=== PATIENT | female | born 1975 | race Caucasian/White ===

== ENCOUNTER 2019-11-21 16:19 | Emergency (ER) | payer OTHER ==
[~2019-11-21] VITALS: Ht 144.8 cm; Wt 68.0 kg
[2019-11-21 16:55] VITALS: Ht 144.8 cm; Wt 68.0 kg
[2019-11-21 17:23] LABS: BASOPHIL % 1.1 % (0-2); PLATELET COUNT 292 x10^3mcL (130-400); RED CELL DISTRIBUTION WIDTH 13.4 % (11.5-14.5)
[2019-11-21 17:42] LABS: CARBON DIOXIDE 29.4 mmol/L (21-32); CHLORIDE SERUM 105 mmol/L (98-107); SODIUM SERUM 140 mmol/L (136-145)
[2019-11-21 17:43] LABS: GLUCOSE SERUM 100 mg/dL (74-106)
[2019-11-21 17:44] LABS: ALBUMIN 3.8 g/dL (3.4-5.0); ALKALINE PHOSPHATASE 68 U/L (46-116); ALT/SGPT 26 U/L (14-59); AST/SGOT 14 U/L (15-37); BILIRUBIN TOTAL 0.2 mg/dL (0.20-1.00); CALCIUM 8.8 mg/dL (8.5-10.1); CREATININE SERUM 1.1 mg/dL (0.6-1.0); GFR1 57 mL/min; TOTAL PROTEIN, SERUM 7.5 g/dL (6.4-8.2)
[2019-11-21 17:53] LABS: microscopic required? YES; urine erythrocyte 1+ (NEGATIVE)
[2019-11-21 18:09] LABS: AMPHETAMINE QUAL UR NONE DETECTED (See below)
[2019-11-21 20:45] VITALS: BP 114/52
== END 2019-11-21 20:45 | disposition home or self-care (01) ==
LOC: ED 16:19
PROVIDERS: Emergency Medicine
DX: N39.0 Urinary tract infection, site not specified (principal); F15.10 Other stimulant abuse, uncomplicated; K21.9 Gastro-esophageal reflux disease without esophagitis; F41.9 Anxiety disorder, unspecified; R63.1 Polydipsia; R35.8 Other polyuria; F17.210 Nicotine dependence, cigarettes, uncomplicated; Z13.89 Encounter for screening for other disorder; Z90.49 Acquired absence of other specified parts of digestive tract; Z98.890 Other specified postprocedural states
CPT/HCPCS: G0480; J1885; J7030